=== PATIENT | male | born 1970 | race Caucasian/White ===

== ENCOUNTER → 2023-09-07 11:09 | Outpatient (REF) | payer OTHER, SELFPAY ==
[2023-09-07 15:07] LABS: Mumps Virus IgG Positive; Varicella Zoster IgG (VZV) Positive
[2023-09-08 09:48] LABS: Rubeola (Measles) IgG Positive
[2023-09-08 20:11] LABS: Rubella Positive
== END ==
LOC: OHS 11:09
PROVIDERS: ATTENDING PHYSICIAN Nurse Practitioner Family
DX: Z23 Encounter for immunization (principal)
CPT/HCPCS: 36415; 86480; 86735; 86762; 86765; 86787

== ENCOUNTER → 2023-09-14 06:27 | Outpatient (REF) | payer OTHER, SELFPAY ==
[2023-09-17 00:05] LABS: Quantiferon Mitogen minus NIL 7.23 IU/mL; Quantiferon NIL 0.03 IU/mL; Quantiferon Plus TB1 minus NIL 0.02 IU/mL (<=0.34); Quantiferon Plus TB2 minus NIL 0.03 IU/mL (<=0.34); Quantiferon TB Gold Plus Negative (Negative)
== END ==
LOC: REG 06:27
PROVIDERS: ATTENDING PHYSICIAN Nurse Practitioner Family
DX: Z23 Encounter for immunization (principal)
CPT/HCPCS: 36415; 86480